=== PATIENT | female | born 1970 | race Caucasian/White ===

== ENCOUNTER 2020-02-02 09:43 | Outpatient (REF) | payer MEDICARE, MEDICAID, SELFPAY ==
[2020-02-03 09:43] LABS: BV Int Neg Control Negative (Negative); BV Int Pos Control Positive (Positive)
== END 2020-02-02 09:44 | disposition home or self-care (01) ==
LOC: HO.LAB 09:43
PROVIDERS: PCP Nurse Practitioner Family; Visit Provider Advanced Practice Midwife
DX: Z01.419 Encounter for gynecological examination (general) (routine) without abnormal findings (principal); B36.9 Superficial mycosis, unspecified; N76.0 Acute vaginitis; Z97.5 Presence of (intrauterine) contraceptive device; N91.2 Amenorrhea, unspecified
CPT/HCPCS: 87480; 87510; 87660

== ENCOUNTER 2020-02-03 09:07 | Outpatient (REF) | payer MEDICARE, MEDICAID, SELFPAY ==
[2020-02-04 06:58] LABS: Follicle Stimulating Hormone 40.2 mIU/mL
== END 2020-02-03 09:08 | disposition home or self-care (01) ==
LOC: HO.LAB 09:07
PROVIDERS: PCP Nurse Practitioner Family; Visit Provider Advanced Practice Midwife
DX: N91.2 Amenorrhea, unspecified (principal)
CPT/HCPCS: 83001